=== PATIENT | female | born 1990 | race African-American/Black ===

== ENCOUNTER 2020-04-10 01:28 | Emergency (ER) | payer OTHER ==
[~2020-04-10] VITALS: Ht 165.1 cm; Wt 86.6 kg
[2020-04-10 02:35] LABS: BASO % 0.3 % (0.0-1.0); EOS # 0.1 10^3/uL (0.0-0.5); EOS % 0.6 % (0.0-3.0); HEMATOCRIT 36.4 % (36.0-47.0); LYMPH # 3.2 10^3/uL (1.5-5.0); LYMPH % 26.1 % (24.0-44.0); MEAN CORPUSCULAR HEMOGLOBIN 28.5 pg (27.0-33.0); MEAN CORPUSCULAR VOLUME 86.5 fl (80.0-96.0); MONO # 0.9 10^3/uL (0.0-0.8); MONO % 7.1 % (0.0-5.0); NEUTROPHILS # 8.1 10^3/uL (1.5-8.5); NEUTROPHILS % 65.7 % (36.0-66.0); PLATELET COUNT, AUTOMATED 385 10^3/uL (150-450); RED BLOOD COUNT 4.21 10^6/uL (4.00-5.40); WHITE BLOOD COUNT 12.3 10^3/uL (4.0-10.0)
--- NOTE | 2020-04-10 02:46 | REPVR ---
PROCEDURE INFORMATION: Exam: XR Chest, 1 View Exam date and time: 04/10/20 (2:02am) Age: 29 years old Clinical indication: Cough. Dyspnea. TECHNIQUE: Imaging protocol: XR of the chest Views: 1 view. COMPARISON: No relevant prior studies available FINDINGS: Lungs: Unremarkable. No consolidation. Pleural space: Unremarkable. No pleural effusions. No pneumothorax. Heart/Mediastinum: Unremarkable. No cardiomegaly. Bones/joints: Unremarkable. IMPRESSION: No acute findings. Clear lung naranjo. Electronically signed by: Linda Kirkpatrick On 04/10/2020 02:46:11 AM
[2020-04-10 02:48] LABS: INR 0.84; PROTHROMBIN TIME 11.7 SECONDS (12.5-14.3)
[2020-04-10 02:51] LABS: D-DIMER QUANT 316.4 ng/ml (<500)
[2020-04-10 03:24] LABS: ALBUMIN 3.7 GM/DL (3.2-5.2); ALT/SGPT 20 U/L (12-78); BILIRUBIN,DIRECT < 0.1 MG/DL (0.0-0.2); BILIRUBIN,TOTAL 0.3 MG/DL (0.2-1.0); BLOOD UREA NITROGEN 13 MG/DL (7-18); CALCIUM LEVEL 8.5 MG/DL (8.5-10.1); CARBON DIOXIDE LEVEL 27 MEQ/L (21-32); CHLORIDE LEVEL 108 MEQ/L (98-107); CREATININE FOR GFR 0.75 MG/DL (0.55-1.30); GLOMERULAR FILTRATION RATE > 60.0 (>60); GLUCOSE, FASTING 97 MG/DL (70-100); POTASSIUM SERUM 4.6 MEQ/L (3.5-5.1); SODIUM LEVEL 142 MEQ/L (136-145); TOTAL PROTEIN 7.6 GM/DL (6.4-8.2)
[2020-04-10 04:07] LABS: RSV AMPLIFICATION NEGATIVE (NEGATIVE)
[2020-04-10 04:30] LABS: HCG, SERUM QUANTITATIVE < 1.0 MIU/ML
[2020-04-10] MEDS ORDERED: ISOVUE-370 76% 100ML VIAL As Ordered ONE (04:31)
--- NOTE | 2020-04-10 05:11 | REPVR ---
PROCEDURE INFORMATION: Exam: CT Angiography Chest With Contrast Exam date and time: 04/10/2020 4:24 AM Age: 29 years old Clinical indication: Shortness of breath; Additional info: Shortness of breathing TECHNIQUE: Imaging protocol: Computed tomographic angiography of the chest with intravenous contrast. 3D rendering (Not supervised by radiologist): MIP and/or 3D reconstructed images were created by the technologist. Radiation optimization: All CT scans at this facility use at least one of these dose optimization techniques: automated exposure control; mA and/or kV adjustment per patient size (includes targeted exams where dose is matched to clinical indication); or iterative reconstruction. Contrast material: ISO; Contrast volume: 75 ml; Contrast route: INTRAVENOUS (IV); COMPARISON: CR PORTABLE CHEST X-RAY 04/10/2020 1:57 AM FINDINGS: Pulmonary arteries: The pulmonary arteries are not enlarged. No filling defects are seen to indicate an acute pulmonary embolism. Aorta: There is no thoracic aortic aneurysm or evidence of dissection. Lungs: The lungs are clear. Pleural space: No pleural effusions or pneumothorax identified. Heart: The heart is borderline enlarged. Mediastinal space: There is soft tissue density in the anterior superior mediastinum, consistent with residual thymic tissue. Lymph nodes: No lymphadenopathy is seen. Bones/joints: No suspicious osseous lesions. No acute fractures. Soft tissues: The soft tissues appear unremarkable. IMPRESSION: 1. No evidence of acute pulmonary embolism. 2. Clear lungs. 3. Borderline enlarged heart. Electronically signed by: Carlyn Dawson On 04/10/2020 05:11:16 AM
[2020-04-10] MEDS ORDERED: HYDR-3363 PO (05:28)
[2020-04-10 05:45] VITALS: BP 128/72
--- NOTE | 2020-04-11 07:35 | ECGEPIP ---
[facility] - ED Test Date: 2020-04-10 Pat Name: ABRIL BOB Department: Room: - Gender: Female Manager Social: taya : 1990 Requested By: DYLON Spencer Order Number: [id number] Reading MD: Lanette Huntley Measurements Intervals [place] Rate: 103 P: 34 FL: 148 QRS: 55 QRSD: 80 T: -15 QT: 319 QTc: 418 Interpretive Statements SINUS TACHYCARDIA NONSPECIFIC ST & T-WAVE ABNORMALITY No prior Electronically Signed on 04-11-2020 7:34:46 EST by Lanette Huntley
== END 2020-04-10 06:00 | disposition home or self-care (01) ==
LOC: M ED 01:28
DX: F41.9 Anxiety disorder, unspecified (principal)
CPT/HCPCS: 36415; 71045; 71275; 80048; 80076; 84443; 84702; 85025; 85379; 85610; 87631; 93005; 93041; 94760; 99285; Q9967

== ENCOUNTER 2020-08-12 15:32 | Emergency (ER) | payer OTHER ==
[~2020-08-12] VITALS: Ht 165.1 cm; Wt 86.9 kg
[~2020-08-12 15:32] MED LIST: HYDR-3363 PO
[2020-08-12] MEDS ORDERED: PRENTAB53 PO (15:44)
[2020-08-12] MEDS ORDERED: ACETAMINOPHEN TAB 650MG DOSE (2X325MG) PO ONE (16:00)
[2020-08-12 16:37] LABS: BASO % 0.2 % (0.0-1.0); EOS % 0.2 % (0.0-3.0); HEMATOCRIT 36.6 % (36.0-47.0); HEMOGLOBIN 12.5 g/dl (12.0-15.5); LYMPH # 1.9 10^3/uL (1.5-5.0); LYMPH % 15.4 % (24.0-44.0); MEAN CORPUSCULAR HEMOGLOBIN 29.3 pg (27.0-33.0); MEAN CORPUSCULAR HGB CONC 34.2 g/dl (32.0-36.5); MEAN CORPUSCULAR VOLUME 85.9 fl (80.0-96.0); MONO # 0.7 10^3/uL (0.0-0.8); MONO % 5.3 % (2.0-8.0); NEUTROPHILS # 9.6 10^3/uL (1.5-8.5); NEUTROPHILS % 78.7 % (36.0-66.0); PLATELET COUNT, AUTOMATED 341 10^3/uL (150-450); RED BLOOD COUNT 4.26 10^6/uL (4.00-5.40); WHITE BLOOD COUNT 12.2 10^3/uL (4.0-10.0)
[2020-08-12 16:48] LABS: INR 0.99; PROTHROMBIN TIME 13.3 SECONDS (12.5-14.3)
--- NOTE | 2020-08-12 17:18 | REP ---
INDICATION: VAGINAL BLEEDING. COMPARISON: None. TECHNIQUE: Transabdominal scanning. FINDINGS: Scanning demonstrates a living intrauterine single gestation. The crown-rump length measures 8 mm. This corresponds with a gestational age estimate of 6 weeks 5 days. heart rate is recorded at 142 beats per minute. No extra uterine abnormality is observed. No complication is identified. IMPRESSION: Viable single intrauterine gestation at 6 weeks 5 days by crown-rump length. JOSIE by sonography 02 April 2021. No complication is seen. <Electronically signed by Partha Ponce > 08/12/20 [id number]
[2020-08-12 17:29] LABS: BLOOD UREA NITROGEN 5 MG/DL (7-18); CALCIUM LEVEL 9.1 MG/DL (8.5-10.1); CARBON DIOXIDE LEVEL 25 MEQ/L (21-32); CHLORIDE LEVEL 101 MEQ/L (98-107); CREATININE FOR GFR 0.53 MG/DL (0.55-1.30); GLOMERULAR FILTRATION RATE > 60.0 (>60); GLUCOSE, FASTING 77 MG/DL (70-100); HCG, SERUM QUANTITATIVE 81023 MIU/ML; POTASSIUM SERUM 3.6 MEQ/L (3.5-5.1); SODIUM LEVEL 135 MEQ/L (136-145)
[2020-08-12 17:48] VITALS: BP 114/65
== END 2020-08-12 18:22 | disposition home or self-care (01) ==
LOC: M ED 15:32
DX: O20.0 Threatened abortion (principal); Z3A.01 Less than 8 weeks gestation of pregnancy

== ENCOUNTER 2020-10-18 10:58 | Emergency (ER) | payer OTHER ==
[~2020-10-18] VITALS: Ht 165.1 cm; Wt 83.8 kg
[~2020-10-18 10:58] MED LIST changes: +PRENTAB53 PO
[2020-10-18] MEDS ORDERED: PROPARACAINE 0.5% OPHTH SOL 15ML OU ONE (12:05)
[2020-10-18] MEDS ORDERED: FLUORESCEIN OPHTH 1 MG STRIP OU ONE (12:05)
--- NOTE | 2020-10-18 15:33 | REPVR ---
PROCEDURE INFORMATION: Exam: MR Head Without Contrast Exam date and time: 10/18/2020 3:00 PM Age: 30 years old Clinical indication: Visual disturbance; Additional info: Papilledema TECHNIQUE: Imaging protocol: MR of the head without contrast. COMPARISON: No relevant prior studies available. FINDINGS: Brain: No acute infarct identified on the diffusion-weighted imaging. No parenchymal hemorrhage. No evidence of brain parenchymal edema or intracranial mass effect. Preservation of the major midline flow voids. A rounded focus of increased signal intensity at the junction of left anterior limb internal capsule with roper radiata, nonspecific, of doubtful clinical relevance, perhaps represents trace chronic small vessel ischemic change (could reflect migrainous angiopathy if is relevant history). Cerebral ventricles: Normal. No ventriculomegaly. Bones/joints: Unremarkable. Paranasal sinuses: Normal as visualized. No acute sinusitis. Mastoid air cells: Normal as visualized. No mastoid effusion. Orbital cavity: Unremarkable. Soft tissues: Unremarkable. IMPRESSION: Essentially unremarkable MRI brain. Electronically signed by: Anneliese Suarez On 10/18/2020 15:32:27 PM
--- NOTE | 2020-10-18 15:53 | REP ---
INDICATION: fetus check COMPARISON: 08/12/2020 TECHNIQUE: Transabdominal obstetrical ultrasound with color Doppler evaluation. FINDINGS: Examination demonstrates a single live intrauterine in cephalic presentation. motion is identified by technologist. Placenta is noted posterior and grade 0 without evidence for placenta previa or abruption. Amniotic fluid volume is normal. Cervix measures 3.2 cm in length and appears closed. Suspected 1.2 cm anterior fibroid. Selected gestational age: 16 weeks 2 days with JOSIE 04/02/2021. FHR equals 150 beats per minute. JORGE: 10.3 cm (8.0-18.7) Umbilical artery SD ratio: 3.12 IMPRESSION: No obvious /obstetrical abnormalities Possible 1.2 cm anterior intramural fibroid versus contraction. <Electronically signed by Harvey Go > 10/18/20 [id number]
[2020-10-18 16:52] VITALS: BP 132/70
--- NOTE | 2020-10-19 06:25 | ED PDOC ---
Post-Departure Follow-Up ob limited us faxed to [facility] for fu Loreto Low MD Oct 19, 2020 06:25
== END 2020-10-18 16:59 | disposition short-term general hospital (02) ==
LOC: M ED 10:58
DX: O99.891 Other specified diseases and conditions complicating pregnancy (principal); H47.10 Unspecified papilledema; Z3A.16 16 weeks gestation of pregnancy
CPT/HCPCS: 70551; 76815; 99284; U0002

== ENCOUNTER 2020-11-24 18:44 | Outpatient (CLI) | payer OTHER ==
[~2020-11-24] VITALS: Ht 162.6 cm; Wt 86.7 kg
[2020-11-24 19:10] VITALS: BP 126/70
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
== END 2020-11-24 19:39 | disposition home or self-care (01) ==
LOC: M LDO 18:44
PROVIDERS: ATTEND Obstetrics & Gynecology
DX: O26.892 Other specified pregnancy related conditions, second trimester (principal); R10.9 Unspecified abdominal pain; Z3A.21 21 weeks gestation of pregnancy
CPT/HCPCS: 59025; 76815; G0378; G0463

== ENCOUNTER 2021-01-24 21:35 | Outpatient (CLI) | payer OTHER ==
[~2021-01-24] VITALS: Ht 165.1 cm; Wt 86.2 kg
[2021-01-24 22:03] VITALS: BP 121/56
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
== END 2021-01-24 22:40 | disposition home or self-care (01) ==
LOC: M LDO 21:35
PROVIDERS: ATTEND Obstetrics & Gynecology
DX: O26.893 Other specified pregnancy related conditions, third trimester (principal); R10.11 Right upper quadrant pain; Z3A.30 30 weeks gestation of pregnancy
CPT/HCPCS: 59025; 81001; G0378; G0463

== ENCOUNTER 2021-03-12 06:19 | Outpatient (CLI) | payer OTHER ==
[~2021-03-12] VITALS: Ht 165.1 cm; Wt 87.2 kg
[2021-03-12 06:56] VITALS: BP 140/73
[2021-03-12] MEDS ORDERED: ACET50CA PO (07:04)
[2021-03-12] MEDS ORDERED: HOME MED LIST COMPLETE! XX SCH (07:05)
[2021-03-12 08:03] VITALS: BP 132/77
[2021-03-12 08:45] LABS: HEMATOCRIT 39.9 % (36.0-47.0); HEMOGLOBIN 13.5 g/dl (12.0-15.5); MEAN CORPUSCULAR HEMOGLOBIN 29.1 pg (27.0-33.0); MEAN CORPUSCULAR HGB CONC 33.8 g/dl (32.0-36.5); PLATELET COUNT, AUTOMATED 364 10^3/uL (150-450); RED BLOOD COUNT 4.64 10^6/uL (4.00-5.40); WHITE BLOOD COUNT 12.6 10^3/uL (4.0-10.0)
[2021-03-12 09:05] LABS: ALBUMIN 2.7 GM/DL (3.2-5.2); ALT/SGPT 58 U/L (12-78); BILIRUBIN,TOTAL 0.7 MG/DL (0.2-1.0); BLOOD UREA NITROGEN 10 MG/DL (7-18); CALCIUM LEVEL 9.8 MG/DL (8.5-10.1); CARBON DIOXIDE LEVEL 20 MEQ/L (21-32); CHLORIDE LEVEL 109 MEQ/L (98-107); CREATININE FOR GFR 0.68 MG/DL (0.55-1.30); GLOMERULAR FILTRATION RATE > 60.0 (>60); GLUCOSE, FASTING 82 MG/DL (70-100); LDH LACTATE DEHYDROGENASE 158 U/L (84-246); POTASSIUM SERUM 3.9 MEQ/L (3.5-5.1); SODIUM LEVEL 141 MEQ/L (136-145); TOTAL PROTEIN 7.1 GM/DL (6.4-8.2); URIC ACID 4.4 MG/DL (2.6-6.0)
[2021-03-12 09:20] LABS: AMORPHOUS SEDIMENT MODERATE (NEGATIVE); APPEARANCE, URINE CLOUDY (CLEAR); BACTERIA, URINE AUTO NEGATIVE (NEGATIVE); BILIRUBIN, URINE AUTO NEGATIVE (NEGATIVE); BLOOD, URINE BLOOD NEGATIVE (NEGATIVE); COLOR, URINE YELLOW (YELLOW); GLUCOSE, URINE (UA) AUTO NEGATIVE (NEGATIVE); KETONE, URINE AUTO NEGATIVE (NEGATIVE); LEUKOCYTE ESTERASE, URINE AUTO NEGATIVE (NEGATIVE); NITRITE, URINE AUTO NEGATIVE (NEGATIVE); PROTEIN, URINE AUTO NEGATIVE (NEGATIVE); RBC, URINE AUTO 2 /HPF (0-3); SPECIFIC GRAVITY URINE AUTO 1.011 (1.002-1.035); SQUAMOUS EPITHELIAL CELL UR AU 0 /HPF (0-6); UROBILINOGEN, URINE AUTO 0.2 mg/dL (0.0-2.0); WBC, URINE AUTO 0 /HPF (0-3)
[2021-03-12 09:22] VITALS: BP 130/74
== END 2021-03-12 11:04 | disposition home or self-care (01) ==
LOC: M LDO 06:19
PROVIDERS: ATTEND Obstetrics & Gynecology
DX: O26.893 Other specified pregnancy related conditions, third trimester (principal); R10.9 Unspecified abdominal pain; Z3A.37 37 weeks gestation of pregnancy
CPT/HCPCS: 36415; 59025; 76705; 80053; 81001; 82247; 82565; 83615; 84450; 84460; 84550; 85027; G0378; G0463